=== PATIENT | female | born 1995 | race Caucasian/White ===

== ENCOUNTER 2018-04-14 16:18 | Emergency (ER) | payer MEDICAID, OTHER ==
[~2018-04-14] VITALS: Ht 154.9 cm; Wt 56.7 kg
[2018-04-14 16:26] VITALS: BP 105/65
[2018-04-14 17:37] VITALS: BP 105/65
== END 2018-04-14 17:35 | disposition home or self-care (01) ==
LOC: MED 16:18
DX: H10.212 Acute toxic conjunctivitis, left eye (principal); T50.2X5A Adverse effect of carbonic-anhydrase inhibitors, benzothiadiazides and other diuretics, initial encounter; Y92.89 Other specified places as the place of occurrence of the external cause
CPT/HCPCS: 99283

== ENCOUNTER 2018-07-29 22:49 | Emergency (ER) | payer OTHER ==
[~2018-07-29] VITALS: Ht 154.9 cm; Wt 57.6 kg
[2018-07-29 23:18] VITALS: BP 114/74
--- NOTE | 2018-07-29 23:20 | NUR ---
PT AMBULATED TO BED 2 WITH VSS.
--- NOTE | 2018-07-29 23:40 | NUR ---
PT BIB SELF C/O CHEST PAIN AND SOB. PT STATES THAT SHE WAS GOING TO SLEEP LAST NIGTH AND CHEST PAIN STARTED, RADIATES TO BACK AND DOWN LEFT ARM. PT STATES IT FEELS LIKE LEFT ARM IS GOING TO FALL ASLEEP. +NAUSEA,+VOMITING 4X TODAY, YELLOW EMISIS. PAIN 6/10. AAOX4. LUNG SOUND CLEAR THROUGH OUT. BOWEL SOUNDS ACTIVE IN ALL 4 QUAD. PT IN GOWN IN BED; BED IN LOWER LOCKED POSITION. ER MD MADE AWARE OF PT STATUS. PMH: GERD, KIDNEY STONES, STOMACH ULCERS RX: BC
--- NOTE | 2018-07-29 23:42 | NUR ---
DR. CORDOVA AT BEDSIDE FOR EVALUATION.
[2018-07-29] MEDS ORDERED: ONDANSETRON 4 MG ODT PO ONE (23:45)
[2018-07-30 00:10] LABS: BASOPHILS % (AUTO) 0.4 % (0.0-2.0); EOSINOPHILS # (AUTO) 0.1 K/uL (0-0.4); HEMATOCRIT 39.2 % (36-48); LYMPHOCYTES # (AUTO) 2.5 K/uL (2.5-16.5); LYMPHOCYTES % (AUTO) 35.8 % (20.5-51.1); MEAN CORPUSCULAR HEMOGLOBIN 31 pg (27-31); MEAN CORPUSCULAR HGB CONC 33 g/dL (33-37); MEAN CORPUSCULAR VOLUME 94.6 fL (80-94); MONOCYTES # (AUTO) 0.6 K/uL (0.8-1.0); MONOCYTES % (AUTO) 8.7 % (1.7-9.3); NEUTROPHILS # (AUTO) 3.8 K/uL (1.8-7.7); NEUTROPHILS % (AUTO) 54.1 % (42.2-75.2); PLATELET COUNT (AUTO) 275 K/uL (140-450); RED BLOOD CELL COUNT(AUTO) 4.14 MIL/uL (4.20-5.40); RED CELL DISTRIBUTION WIDTH 13.1 % (11.6-13.7); WHITE BLOOD COUNT (AUTO) 7.1 K/uL (4.8-10.8)
[2018-07-30 00:15] LABS: ANION GAP 6.3 (8-16); CARBON DIOXIDE 29.8 mmol/L (21-32); CREATININE 1.1 mg/dL (0.6-1.3); POTASSIUM 4.1 mmol/L (3.5-5.1)
[2018-07-30 00:21] LABS: TOTAL BILIRUBIN 0.3 mg/dL (0.0-1.0)
[2018-07-30] MEDS ORDERED: KETOROLAC 30 MG/ML VIAL IM ONE (00:45)
[2018-07-30 01:32] VITALS: BP 104/68
== END 2018-07-30 01:20 | disposition home or self-care (01) ==
LOC: MED 22:49
DX: R07.89 Other chest pain (principal); R11.2 Nausea with vomiting, unspecified; R06.02 Shortness of breath; K21.9 Gastro-esophageal reflux disease without esophagitis
CPT/HCPCS: 36415; 71045; 80053; 81002; 81025; 84484; 85025; 85379; 93005; 99284; J1885; Q0092; Q0162

== ENCOUNTER 2018-09-19 19:48 | Emergency (ER) | payer OTHER ==
[~2018-09-19] VITALS: Ht 154.9 cm; Wt 60.8 kg
[2018-09-19 20:10] VITALS: BP 108/75
--- NOTE | 2018-09-19 20:16 | NUR ---
PT AMBULATED BACK TO LOBBYLG
--- NOTE | 2018-09-19 20:16 | NUR ---
PT AMBULATED TO THE RESTROOM TO GIVE U/A SPECIMEN
--- NOTE | 2018-09-19 23:02 | NUR ---
230---1ST CALL. PATIENT LEFT WITHOUT BEING SEEN BY DR. ZAMARRIPA. NO FURTHER CARE PROVIDED FOR PATIENT. 2311---2ND CALL, NO ANSWER. 2321---3RD CALL, NO ANSWER.
== END 2018-09-19 23:02 | disposition left against medical advice (07) ==
LOC: MED 19:48
DX: R42 Dizziness and giddiness (principal); R11.0 Nausea; R19.7 Diarrhea, unspecified; F41.9 Anxiety disorder, unspecified; R51 Headache; Z53.21 Procedure and treatment not carried out due to patient leaving prior to being seen by health care provider
CPT/HCPCS: 81002; 81025